=== PATIENT | male | born 2000 | race Caucasian/White ===

== ENCOUNTER 2023-01-21 06:59 | Emergency (ER) | payer MEDICAID | END 2023-01-21 08:24 | disposition home or self-care (01) | LOC: VM.ED 06:59 | DX: S70.12XA Contusion of left thigh, initial encounter (principal); Z87.891 Personal history of nicotine dependence; Z88.8 Allergy status to other drugs, medicaments and biological substances; Z88.0 Allergy status to penicillin; Z91.048 Other nonmedicinal substance allergy status; Z91.040 Latex allergy status; Y04.0XXA Assault by unarmed brawl or fight, initial encounter | CPT/HCPCS: 99283; 99284 ==